=== PATIENT | male | born 1955 | race Caucasian/White ===

== ENCOUNTER 2018-09-07 11:34 | Emergency (ER) | payer SELFPAY ==
[~2018-09-07] VITALS: Ht 177.8 cm; Wt 70.2 kg
[~2018-09-07 11:34] MED LIST: ACET500C5 PO; HCTZ; LAMOTRIGINE; LYRICA; TRAZODONE
[2018-09-07 11:47] VITALS: BP 112/59; PULSE 60; RESP 18; Ht 177.8 cm; Wt 70.2 kg
== END 2018-09-07 17:33 | disposition left against medical advice (07) ==
LOC: FTE 11:34
DX: Z53.21 Procedure and treatment not carried out due to patient leaving prior to being seen by health care provider (principal)